=== PATIENT | male | born 1955 | race Hispanic/Latino ===

== ENCOUNTER 2023-12-09 06:22 | Day surgery (SDC) | payer OTHER ==
[~2023-12-09] VITALS: Ht 185.4 cm; Wt 104.8 kg
[2023-12-09] VITALS (11 sets, daily range): BP systolic 114–146; BP diastolic 60–75; PULSE 55–64; RESP 15–19
[~2023-12-09 06:22] MED LIST: FAMO-136 PO; POLY17PO4 PO; TIMO1DRO9 OU; [UNRECOGNIZED DRUG - OTHER] PO
[2023-12-09] MEDS: 0.9%NACL 1000ML 1,000 ML IV ONE (07:10)
[2023-12-09] MEDS ORDERED: PROPOFOL 10 MG/ML 20ML VIAL IV ONE (09:00)
== END 2023-12-09 13:08 | disposition home or self-care (01) ==
LOC: ENDO 06:22 → DAH 06:22 → ENDO 13:08
PROVIDERS: ATTEND Internal Medicine Gastroenterology
DX: K85.00 Idiopathic acute pancreatitis without necrosis or infection (principal); R10.10 Upper abdominal pain, unspecified; K59.04 Chronic idiopathic constipation; K31.84 Gastroparesis; K76.0 Fatty (change of) liver, not elsewhere classified; E11.9 Type 2 diabetes mellitus without complications; K64.9 Unspecified hemorrhoids; Z86.010 Personal history of colon polyps; Z79.899 Other long term (current) drug therapy; Z90.49 Acquired absence of other specified parts of digestive tract; Z88.0 Allergy status to penicillin
CPT/HCPCS: 43259; 82948 ×2; 43239; J7030 ×2; J2704; A4620; A4215; A4223; A7002; A4222; A4221; A4663; A4606; J3490